=== PATIENT | female | born 1975 | race African-American/Black ===

== ENCOUNTER 2016-06-13 14:49 | Emergency (ER) | payer MEDICAID ==
[~2016-06-13] VITALS: Ht 160 cm; Wt 84.0 kg
[~2016-06-13 14:49] MED LIST: BACT800T5 PO; CIPR-9 PO; CYCL-36 PO; CYCL1TAB29 PO; FERR324T4 PO; HYDR-3533 PO; HYDR12.56 PO; IBUP800 PO; PERC5TAB12 PO; ZOFR4TAB3 SL
[2016-06-13 14:51] VITALS: BP 167/107; PULSE 107; RESP 17; TEMP 98.7; O2SAT 98
[2016-06-13] MEDS ORDERED: TRIA1TAB5 PO (16:20)
[2016-06-13] MEDS ORDERED: HYDR-3535 PO (16:20)
[2016-06-13] MEDS ORDERED: AMIT25TA9 PO (16:20)
[2016-06-13] MEDS ORDERED: LEXA10TA PO (16:20)
--- NOTE | 2016-06-13 16:35 | PD ---
HPI Chief Complaint: Abdominal Pain Time Seen by Provider: 16:20 Travel History International Travel<30 days: No Contact w/Intl Traveler<30days: No Traveled to known affect area: No History of Present Illness HPI This is a 40-year-old female who is sent by her primary care clinic for evaluation of abdominal pain. Symptoms started 1 week ago. She describes it as an aching pain in the right lower quadrant of the abdomen which is constant, worse with palpation. She endorses occasional nausea. She denies any vomiting , diarrhea or constipation, vaginal bleeding or discharge, fevers, flank pain, chest pain, shortness of breath. The patient has a history of partial hysterectomy, ovaries spared, in September 2015. Per the patient's notes from her office visit today, she had a CT the abdomen and pelvis ordered on May 27 however it was denied by her insurance. She was then transported here via EMS today. She has no other complaints at this time. PFSH Past Medical History Anemia: Yes Cancer: Yes (OVARIAN CANCER 2014 ) Cardiovascular Problems: Yes (HTN) Chemotherapy: No Diminished Hearing: No Endocrine: No Gastrointestinal Disorders: Yes (MILD CONSTIPATION WITH PAIN PILLS) Genitourinary: No Hypertension: Yes Immune Disorder: No Musculoskeletal: No Neurologic: No Psychiatric: No Reproductive: Yes (uterine fibroids) Respiratory: No Radiation Therapy: No : 1 Para: 1 Miscarriage: 0 : 0 Ectopic : No Ovarian Cysts: Yes Dilation and Curettage (D&C): No Tubal Ligation: No Past Surgical History Abdominal Surgery: Yes (hysterectomy) Section: No Gynecologic Surgery: Yes (hysterectomy) Hysterectomy: Yes Other Surgery: Yes (HYSTERECTOMY 2013) Social History Alcohol Use: No Tobacco Use: Yes (2 CIGARS PER DAY) Substance Use: No Allergies-Medications (Allergen,Severity, Reaction): Uncoded Allergies: KEROSENE (Allergy, Intermediate, Rash, 11/14/13) HIVES Reported Meds & Prescriptions Reported Meds & Active Scripts Active Naproxen 500 Mg Tab 500 Mg PO BID PRN Macrobid (Nitrofurantoin Monoh/Nitrofur Macro) 100 Mg Cap 100 Mg PO BID 7 Days Flexeril (Cyclobenzaprine HCl) 10 Mg Tab 10 Mg PO TID Reported Lortab (Hydrocodone-Acetaminophen) 10-325 Mg Tab 1 Tab PO Q6H PRN Triamterene-Hydrochlorothiazide 75-50 Mg Tab 1 Tab PO DAILY Lexapro (Escitalopram Oxalate) 10 Mg Tab 10 Mg PO DAILY Amitriptyline (Amitriptyline HCl) 25 Mg Tab 25 Mg PO HS Review of Systems Except as stated in HPI: all other systems reviewed are Neg Physical Exam Narrative GENERAL: Well-developed well-nourished female in no acute distress SKIN: Warm and dry. HEAD: Atraumatic. Normocephalic. EYES: Pupils equal and round. No scleral icterus. No injection or drainage. ENT: No nasal bleeding or discharge. Mucous membranes pink and moist. NECK: Trachea midline. No JVD. CARDIOVASCULAR: Regular rate and rhythm. No murmur appreciated. RESPIRATORY: No accessory muscle use. Clear to auscultation. Breath sounds equal bilaterally. GASTROINTESTINAL: Abdomen soft, somewhat protuberant, tenderness to palpation in the right and left lower quadrant without guarding. There is no CVA tenderness. MUSCULOSKELETAL: No obvious deformities. No edema. NEUROLOGICAL: Awake and alert. No obvious cranial nerve deficits. Motor grossly within normal limits. Normal speech. PSYCHIATRIC: Appropriate mood and affect; insight and judgment normal. Data Data Last Documented VS Vital Signs Date Time Temp Pulse Resp B/P Pulse Ox O2 Delivery O2 Flow Rate FiO2 06/13/16 14:51 98.7 107 17 167/107 98 Orders Complete Blood Count With Diff (06/13/16 16:26) Comprehensive Metabolic Panel (06/13/16 16:26) Lipase (06/13/16 16:26) Urinalysis - C+S If Indicated (06/13/16 16:26) Ct Abd/Pel W Iv Contrast(Rout) (06/13/16 16:26) Urine Culture (06/13/16 16:40) Urine Culture (06/13/16 16:40) Iohexol 350 Inj (Omnipaque 350 Inj) (06/13/16 18:19) Labs Laboratory Tests Test 06/13/16 06/13/16 16:34 16:40 White Blood Count 7.2 TH/MM3 Red Blood Count 4.57 MIL/MM3 Hemoglobin 13.6 GM/DL Hematocrit 40.4 % Mean Corpuscular Volume 88.5 FL Mean Corpuscular Hemoglobin 29.7 PG Mean Corpuscular Hemoglobin 33.6 % Concent Red Cell Distribution Width 13.5 % Platelet Count 287 TH/MM3 Mean Platelet Volume 8.1 FL Neutrophils (%) (Auto) 67.9 % Lymphocytes (%) (Auto) 24.0 % Monocytes (%) (Auto) 6.2 % Eosinophils (%) (Auto) 1.2 % Basophils (%) (Auto) 0.7 % Neutrophils # (Auto) 4.9 TH/MM3 Lymphocytes # (Auto) 1.7 TH/MM3 Monocytes # (Auto) 0.4 TH/MM3 Eosinophils # (Auto) 0.1 TH/MM3 Basophils # (Auto) 0.1 TH/MM3 CBC Comment DIFF FINAL Differential Comment Sodium Level 138 MEQ/L Potassium Level 3.5 MEQ/L Chloride Level 106 MEQ/L Carbon Dioxide Level 24.9 MEQ/L Anion Gap 7 MEQ/L Blood Urea Nitrogen 9 MG/DL Creatinine 0.72 MG/DL Estimat Glomerular Filtration 109 ML/MIN Rate Random Glucose 97 MG/DL Calcium Level 8.4 MG/DL Total Bilirubin 0.4 MG/DL Aspartate Amino Transf 25 U/L (AST/SGOT) Alanine Aminotransferase 29 U/L (ALT/SGPT) Alkaline Phosphatase 122 U/L Total Protein 7.7 GM/DL Albumin 3.5 GM/DL Lipase 95 U/L Urine Color YELLOW Urine Turbidity HAZY Urine pH 6.0 Urine Specific [place] 1.023 Urine Protein TRACE mg/dL Urine Glucose (UA) NEG mg/dL Urine Ketones NEG mg/dL Urine Occult Blood NEG Urine Nitrite POS Urine Bilirubin NEG Urine Urobilinogen LESS THAN 2.0 MG/DL Urine Leukocyte Esterase SMALL Urine WBC 12 /hpf Urine Squamous Epithelial 2 /hpf Cells Urine Bacteria FEW /hpf Urine Mucus MANY /lpf Microscopic Urinalysis Comment CULTURE INDICATED MDM Medical Decision Making Medical Screen Exam Complete: Yes Emergency Medical Condition: Yes Medical Record Reviewed: Yes Differential Diagnosis Ovarian cyst, ovarian torsion, tubo-ovarian abscess, pelvic inflammatory disease , cystitis, appendicitis, colitis, obstruction Narrative Course 40-year-old female history partial hysterectomy presents with 1 week of lower abdominal pain. She had a CT of the abdomen and pelvis ordered by her primary care office on October or however was denied by her insurance. She was seen by her primary care physician again today and transported here via EMS for further evaluation. This patient was initially seen in triage. Protocol orders were initiated. The patient will be moved to medical bed when one becomes available. Scripts Naproxen 500 Mg [id number] Mg PO BID PRN (PAIN SCALE 4 TO 10) #20 TAB Prov:Michelle Lai MD 06/13/16 Nitrofurantoin Monohydrate Macrocrystals (Macrobid)100 Mg [id number] Mg PO BID 7 Days Prov:Michelle Lai MD 06/13/16 [facility] Jun 13, 2016 16:35
[2016-06-13 16:59] LABS: AUTOMATED NEUTROPHIL # 4.9 TH/MM3 (1.8-7.7); BASOPHIL # 0.1 TH/MM3 (0-0.2); BASOPHIL % 0.7 % (0.0-2.0); EOSINOPHIL # 0.1 TH/MM3 (0-0.4); EOSINOPHIL % 1.2 % (0.0-4.0); HEMATOCRIT 40.4 % (35.0-46.0); HEMO FLAGS DIFF FINAL; LYMPHOCYTE # 1.7 TH/MM3 (1.0-4.8); MEAN CELL VOLUME 88.5 FL (80.0-100.0); MEAN CORPUSCULAR HEMOGLOBIN 29.7 PG (27.0-34.0); MEAN CORPUSCULAR HGB CONC 33.6 % (32.0-36.0); MONO % 6.2 % (0.0-8.0); NEUT % 67.9 % (16.0-70.0); PLATELET COUNT 287 TH/MM3 (150-450); RED BLOOD COUNT 4.57 MIL/MM3 (4.00-5.30); RED CELL DISTRIBUTION WIDTH 13.5 % (11.6-17.2); WHITE BLOOD COUNT 7.2 TH/MM3 (4.0-11.0)
[2016-06-13 17:25] LABS: ALKALINE PHOSPHATASE 122 U/L (45-117); ALT (GPT) 29 U/L (10-53); ANION GAP 7 MEQ/L (5-15); AST (GOT) 25 U/L (15-37); BICARBONATE 24.9 MEQ/L (21.0-32.0); BLOOD UREA NITROGEN 9 MG/DL (7-18); CHLORIDE 106 MEQ/L (98-107); GLOMERULAR FILTRATION RATE 109 ML/MIN (>89); SODIUM (NA) 138 MEQ/L (136-145); TOTAL BILIRUBIN ADULT 0.4 MG/DL (0.2-1.0)
[2016-06-13 17:26] LABS: POTASSIUM 3.5 MEQ/L (3.5-5.1)
[2016-06-13 17:26] LABS: BACTERIA, URINE FEW /hpf; BLOOD, URINE NEG (NEG); GLUCOSE,URINE NEG (NEG); KETONE, URINE NEG (NEG); MUCUS URINE MANY /lpf (OCC); SQUAMOUS EPITHELIAL CELL URINE 2 /hpf (0-5); URINE COLOR YELLOW (YELLW/STRAW)
[2016-06-13 17:28] LABS: NITRITE,URINE POS (NEG)
[2016-06-13 17:30] LABS: COMMENT (UR) CULTURE INDICATED; CULTURE IF INDICATED CULTURE INDICATED
[2016-06-13] MEDS ORDERED: IOHEXOL 350 MG/ML 10 ML VIAL (for RAD DIAG) IV ONE (18:19)
--- NOTE | 2016-06-13 18:57 | RADRPT ---
EXAM DATE/TIME: 06/13/2016 18:11 [facility] COMPARISON: No previous studies available for comparison. INDICATIONS : Nausea and abdominal pain. IV CONTRAST: 95 cc Omnipaque 350 (iohexol) IV ORAL CONTRAST: No oral contrast ingested. RADIATION DOSE: 13.91 CTDIvol (mGy) MEDICAL HISTORY : Hypertension. Uterine fibroids. Ovarian cancer. SURGICAL HISTORY : Hysterectomy. ENCOUNTER: Initial ACUITY: 1 day PAIN SCALE: 6/10 LOCATION: Bilateral lower quadrant TECHNIQUE: Volumetric scanning of the abdomen and pelvis was performed. Using automated exposure control and ad justment of the mA and/or kV according to patient size, radiation dose was kept as low as reasonably achievable to obtain optimal diagnostic quality images. FINDINGS: There is a small loculated effusion at the left lung base unchanged since March 2016. Right lung b ase is clear. No acute findings in the liver, spleen, adrenals, kidneys or pancreas. No gallstones or biliary ducta l dilatation. There is no bowel obstruction. No free air or free fluid. Within the pelvis the right ovary is enlarged to 3.9 cm which is similar to the previous 4.3cm measur ement in March 2016. Left ovary is within normal limits for size. No pelvic adenopathy. No acute b karen abnormalities. CONCLUSION: 1. Stable small loculated effusion left lung base compared with March 2016. 2. Enlargement of right ovary to approximately 4 cm, similar to prior measurement. Likely complex cys t within the right ovary. Scotty Solis MD on June 13, 2016 at 18:48 Board Certified Radiologist. This report was verified electronically.
[2016-06-13] MEDS ORDERED: MACR100C2 PO (20:06)
[2016-06-13] MEDS ORDERED: NAPR500T PO (20:06)
--- NOTE | 2016-06-13 20:06 | PD ---
Data Data Last Documented VS Vital Signs Date Time Temp Pulse Resp B/P Pulse Ox O2 Delivery O2 Flow Rate FiO2 06/13/16 14:51 98.7 107 17 167/107 98 Orders Complete Blood Count With Diff (06/13/16 16:26) Comprehensive Metabolic Panel (06/13/16 16:26) Lipase (06/13/16 16:26) Urinalysis - C+S If Indicated (06/13/16 16:26) Ct Abd/Pel W Iv Contrast(Rout) (06/13/16 16:26) Urine Culture (06/13/16 16:40) Urine Culture (06/13/16 16:40) Iohexol 350 Inj (Omnipaque 350 Inj) (06/13/16 18:19) Labs Laboratory Tests Test 06/13/16 06/13/16 16:34 16:40 White Blood Count 7.2 TH/MM3 Red Blood Count 4.57 MIL/MM3 Hemoglobin 13.6 GM/DL Hematocrit 40.4 % Mean Corpuscular Volume 88.5 FL Mean Corpuscular Hemoglobin 29.7 PG Mean Corpuscular Hemoglobin 33.6 % Concent Red Cell Distribution Width 13.5 % Platelet Count 287 TH/MM3 Mean Platelet Volume 8.1 FL Neutrophils (%) (Auto) 67.9 % Lymphocytes (%) (Auto) 24.0 % Monocytes (%) (Auto) 6.2 % Eosinophils (%) (Auto) 1.2 % Basophils (%) (Auto) 0.7 % Neutrophils # (Auto) 4.9 TH/MM3 Lymphocytes # (Auto) 1.7 TH/MM3 Monocytes # (Auto) 0.4 TH/MM3 Eosinophils # (Auto) 0.1 TH/MM3 Basophils # (Auto) 0.1 TH/MM3 CBC Comment DIFF FINAL Differential Comment Sodium Level 138 MEQ/L Potassium Level 3.5 MEQ/L Chloride Level 106 MEQ/L Carbon Dioxide Level 24.9 MEQ/L Anion Gap 7 MEQ/L Blood Urea Nitrogen 9 MG/DL Creatinine 0.72 MG/DL Estimat Glomerular Filtration 109 ML/MIN Rate Random Glucose 97 MG/DL Calcium Level 8.4 MG/DL Total Bilirubin 0.4 MG/DL Aspartate Amino Transf 25 U/L (AST/SGOT) Alanine Aminotransferase 29 U/L (ALT/SGPT) Alkaline Phosphatase 122 U/L Total Protein 7.7 GM/DL Albumin 3.5 GM/DL Lipase 95 U/L Urine Color YELLOW Urine Turbidity HAZY Urine pH 6.0 Urine Specific [place] 1.023 Urine Protein TRACE mg/dL Urine Glucose (UA) NEG mg/dL Urine Ketones NEG mg/dL Urine Occult Blood NEG Urine Nitrite POS Urine Bilirubin NEG Urine Urobilinogen LESS THAN 2.0 MG/DL Urine Leukocyte Esterase SMALL Urine WBC 12 /hpf Urine Squamous Epithelial 2 /hpf Cells Urine Bacteria FEW /hpf Urine Mucus MANY /lpf Microscopic Urinalysis Comment CULTURE INDICATED MDM Supervised Visit with MANOLO: Yes Narrative Course The history, exam, and medical decision-making in the associated midlevel provider note were completed with my assistance. I reviewed and agree with the findings presented. I attest that I had a [id number] encounter with the patient on the same day, and personally performed and documented my assessment and findings in the medical record. *My assessment and Findings: This is a 40 year old female who is in the emergency department with right sided abdominal pain. She spends the emergency department with similar complaints multiple times in the past. Today she had labs performed and a CT abdomen and pelvis which demonstrates a right sided 4 cm complex cyst. She says her pain is constant and her description of her symptoms is not consistent with ovarian torsion. She was aware of this cyst in the past and told to follow up with [facility] [employer]. I don't think the patient has an acute surgical emergency. I considered PID and tubo-ovarian abscess but she denies any vaginal discharge and says she's had the same sexual partner for 7 years. Patient will be discharged home Diagnosis Primary Impression: Ovarian cyst Qualified Code: N83.201 - Cyst of right ovary Patient Instructions: General Instructions Additional Instruction: If you develop severe or worsening abdominal pain, fever>100.4, persistent vomiting or inability to eat or drink return to the emergency department immediately. Follow up with your primary care physician in 1-2 days for a check-up. Med/Other Pt SpecificInfo: Prescription(s) given Scripts Naproxen 500 Mg [id number] Mg PO BID PRN (PAIN SCALE 4 TO 10) #20 TAB Prov:Michelle Lai MD 06/13/16 Nitrofurantoin Monohydrate Macrocrystals (Macrobid)100 Mg [id number] Mg PO BID 7 Days Prov:Michelle Lai MD 06/13/16 Disposition: 01 DISCHARGE HOME Condition: Stable Michelle Lai MD Jun 13, 2016 20:06
[2016-06-13] MEDS ORDERED: ACETAMINOPHEN/HYDROcodone 325 MG/5 MG TAB PO ONE (20:15)
== END 2016-06-13 20:22 | disposition home or self-care (01) ==
LOC: NETRI 14:49 → NEPC 20:22
DX: N83.209 Unspecified ovarian cyst, unspecified side (principal); D64.9 Anemia, unspecified; I10 Essential (primary) hypertension; B96.20 Unspecified Escherichia coli [E. coli] as the cause of diseases classified elsewhere; Z72.0 Tobacco use
CPT/HCPCS: 74177; 80053; 81001; 83690; 85025; 87077; 87086; 87186; 99284; Q9967

== ENCOUNTER 2016-09-11 16:40 | Emergency (ER) | payer MEDICAID ==
[~2016-09-11] VITALS: Ht 160 cm; Wt 79.5 kg
[~2016-09-11 16:40] MED LIST changes: +AMIT25TA9 PO; -BACT800T5 PO; -CIPR-9 PO; -CYCL-36 PO; -FERR324T4 PO; -HYDR-3533 PO; +HYDR-3535 PO; -HYDR12.56 PO; -IBUP800 PO; +LEXA10TA PO; +MACR100C2 PO; +NAPR500T PO; -PERC5TAB12 PO; +TRIA1TAB5 PO; -ZOFR4TAB3 SL
[2016-09-11 16:42] VITALS: BP 192/126; PULSE 79; RESP 20; TEMP 98.8; O2SAT 97
--- NOTE | 2016-09-11 17:32 | PD ---
Physical Exam Date Seen by Provider: September 11, 2016 Time Seen by Provider: 17:30 Narrative Pt presents on the advice of her counselor due to depression and suicidal ideations. No current plan. No previous attempts at suicide. Pt reports chest pain, midsternal with radiation to the back. Pt is mildly nauseated as well.VSS , awaiting bed placement. Data Data Last Documented VS Vital Signs Date Time Temp Pulse Resp B/P Pulse Ox O2 Delivery O2 Flow Rate FiO2 09/11/16 16:42 98.8 79 20 192/126 97 Room Air [facility] Supervised Visit with MANOLO: Brissa Subramanian September 11, 2016 17:32
[2016-09-11 18:00] VITALS: BP 164/108; PULSE 74; RESP 20; O2SAT 97
[2016-09-11 18:29] VITALS: O2SAT 98
--- NOTE | 2016-09-11 18:40 | RADRPT ---
EXAM DATE/TIME: 09/11/2016 18:24 [facility] COMPARISON: No previous studies available for comparison. INDICATIONS : Chest pain, short of breath. MEDICAL HISTORY : None. SURGICAL HISTORY : None. ENCOUNTER: Initial ACUITY: 3 days PAIN SCORE: 10/10 LOCATION: Bilateral chest FINDINGS: A single view of the chest demonstrates the lungs to be symmetrically aerated without evidence of mas s, infiltrate or effusion. The cardiomediastinal contours are unremarkable. Osseous structures are intact. CONCLUSION: No acute disease. Adán Faria MD on September 11, 2016 at 18:38 Board Certified Radiologist. This report was verified electronically.
[2016-09-11] MEDS ORDERED: KETOROLAC TROMETHAMINE 30 MG/ML (IVP) VIAL IV PUSH ONE (18:45)
--- NOTE | 2016-09-11 18:52 | PD ---
HPI Chief Complaint: Psychiatric Symptoms Time Seen by Provider: 18:48 Travel History International Travel<30 days: No Contact w/Intl Traveler<30days: No Traveled to known affect area: No History of Present Illness HPI 41-year-old female that presents to the ED for evaluation of psychiatric evaluation as well as chest pain. Per patient she has had depression and suicidal ideation and her therapist requested that she comes here to get evaluated. Per patient for the past 3 days she's been also having chest discomfort. Per patient the chest discomfort to the mid chest and radiates to the right side. Patient points to the right upper quadrant as the area of most pain. Pain is reproducible with touch but states that nothing really makes it better or worse. She denies any history of heart disease on herself or anybody else. No recent travel. No drugs or alcohol. She does take medications for depression. She has an allergy to kerosene. Denies any nausea or vomiting. No cough or runny nose. No fevers chills or sweats. Symptoms ongoing for 3 days. No injury. PFSH Past Medical History Anemia: Yes Anxiety: Yes Cancer: Yes (OVARIAN CANCER 2014 ) Cardiovascular Problems: Yes Chemotherapy: No Diminished Hearing: No Endocrine: No Gastrointestinal Disorders: Yes (MILD CONSTIPATION WITH PAIN PILLS) Genitourinary: No Hypertension: Yes Immune Disorder: No Musculoskeletal: No Neurologic: No Psychiatric: No Reproductive: Yes (uterine fibroids) Respiratory: No Immunizations Current: Yes Radiation Therapy: No Tetanus Vaccination: < 5 Years Influenza Vaccination: Yes ?: Not : 1 Para: 1 Miscarriage: 0 : 0 Ectopic : No Ovarian Cysts: Yes Dilation and Curettage (D&C): No Tubal Ligation: No Past Surgical History Surgical History: No Previous Surgery Abdominal Surgery: Yes (hysterectomy) Section: No Gynecologic Surgery: Yes (hysterectomy) Hysterectomy: Yes Other Surgery: Yes (HYSTERECTOMY 2013) Social History Alcohol Use: No Tobacco Use: Yes (2 CIGARS PER DAY) Substance Use: No Allergies-Medications (Allergen,Severity, Reaction): Uncoded Allergies: KEROSENE (Allergy, Intermediate, Rash, 11/14/13) HIVES Reported Meds & Prescriptions Reported Meds & Active Scripts Active Reported Triamterene-Hydrochlorothiazide 75-50 Mg Tab 1 Tab PO DAILY Lexapro (Escitalopram Oxalate) 10 Mg Tab 10 Mg PO DAILY Amitriptyline (Amitriptyline HCl) 25 Mg Tab 25 Mg PO HS Review of Systems Except as stated in HPI: all other systems reviewed are Neg Physical Exam Narrative GENERAL: SKIN: Warm and dry. HEAD: Atraumatic. Normocephalic. EYES: Pupils equal and round. No scleral icterus. No injection or drainage. ENT: No nasal bleeding or discharge. Mucous membranes pink and moist. Tongue is midline. No uvula deviation. NECK: Trachea midline. No JVD. CARDIOVASCULAR: Regular rate and rhythm. No murmurs, S3, S4. Some of the chest pain is reproducible with touch in the mid chest. RESPIRATORY: No accessory muscle use. Clear to auscultation. Breath sounds equal bilaterally. GASTROINTESTINAL: Abdomen soft, non-tender, nondistended. Hepatic and splenic margins not palpable. MUSCULOSKELETAL: Extremities without clubbing, cyanosis, or edema. No obvious deformities. Full range of motion of the upper and lower extremities bilaterally. 2+ pulses bilaterally. NEUROLOGICAL: Awake and alert. No obvious cranial nerve deficits. Motor grossly within normal limits. Five out of 5 muscle strength in the arms and legs. Normal speech. PSYCHIATRIC: Appropriate mood and affect; insight and judgment normal. Data Data Last Documented VS Vital Signs Date Time Temp Pulse Resp B/P Pulse Ox O2 Delivery O2 Flow Rate FiO2 09/11/16 19:05 70 17 155/96 98 Room Air 09/11/16 16:42 98.8 Orders Electrocardiogram (09/11/16 17:35) Electrocardiogram (09/11/16 18:03) Complete Blood Count With Diff (09/11/16 18:03) Comprehensive Metabolic Panel (09/11/16 18:03) Ckmb (Isoenzyme) Profile (09/11/16 18:03) Troponin I (09/11/16 18:03) Lipase (09/11/16 18:03) Urinalysis - C+S If Indicated (09/11/16 18:03) Magnesium (Mg) (09/11/16 18:03) Chest, Single Ap (09/11/16 18:03) Iv Access Insert/Monitor (09/11/16 18:03) Ecg Monitoring (09/11/16 18:03) Oximetry (09/11/16 18:03) Ed Urine Pregnancytest Poc (09/11/16 18:03) Drug Screen, Random Urine (09/11/16 18:03) Alcohol (Ethanol) (09/11/16 18:03) Us Abdomen Gallbladder (09/11/16 ) Ketorolac Inj (Toradol Inj) (09/11/16 18:45) Ondansetron Inj (Zofran Inj) (09/11/16 19:15) Labs Laboratory Tests Test 09/11/16 18:43 White Blood Count 7.1 TH/MM3 Red Blood Count 4.78 MIL/MM3 Hemoglobin 13.8 GM/DL Hematocrit 42.1 % Mean Corpuscular Volume 88.1 FL Mean Corpuscular Hemoglobin 28.9 PG Mean Corpuscular Hemoglobin 32.9 % Concent Red Cell Distribution Width 13.3 % Platelet Count 289 TH/MM3 Mean Platelet Volume 8.1 FL Neutrophils (%) (Auto) 64.7 % Lymphocytes (%) (Auto) 26.8 % Monocytes (%) (Auto) 6.5 % Eosinophils (%) (Auto) 1.4 % Basophils (%) (Auto) 0.6 % Neutrophils # (Auto) 4.6 TH/MM3 Lymphocytes # (Auto) 1.9 TH/MM3 Monocytes # (Auto) 0.5 TH/MM3 Eosinophils # (Auto) 0.1 TH/MM3 Basophils # (Auto) 0.0 TH/MM3 CBC Comment DIFF FINAL Differential Comment Urine Color LIGHT-YELLOW Urine Turbidity CLEAR Urine pH 6.5 Urine Specific [place] 1.005 Urine Protein NEG mg/dL Urine Glucose (UA) NEG mg/dL Urine Ketones NEG mg/dL Urine Occult Blood NEG Urine Nitrite NEG Urine Bilirubin NEG Urine Urobilinogen LESS THAN 2.0 MG/DL Urine Leukocyte Esterase NEG Urine WBC 4 /hpf Urine Squamous Epithelial 1 /hpf Cells Urine Bacteria RARE /hpf Microscopic Urinalysis Comment CULT NOT INDICATED Sodium Level 138 MEQ/L Potassium Level 3.5 MEQ/L Chloride Level 105 MEQ/L Carbon Dioxide Level 24.8 MEQ/L Anion Gap 8 MEQ/L Blood Urea Nitrogen 13 MG/DL Creatinine 0.74 MG/DL Estimat Glomerular Filtration 105 ML/MIN Rate Random Glucose 100 MG/DL Calcium Level 8.8 MG/DL Magnesium Level 2.1 MG/DL Total Bilirubin 0.4 MG/DL Aspartate Amino Transf 17 U/L (AST/SGOT) Alanine Aminotransferase 24 U/L (ALT/SGPT) Alkaline Phosphatase 132 U/L Total Creatine Kinase 74 U/L Troponin I LESS THAN 0.02 NG/ML Total Protein 7.9 GM/DL Albumin 3.8 GM/DL Lipase 341 U/L Ethyl Alcohol Level 3 MG/DL MDM Medical Decision Making Medical Screen Exam Complete: Yes Emergency Medical Condition: Yes Medical Record Reviewed: Yes Interpretation(s) CBC & BMP Diagram 09/11/16 18:43 Last Impressions Chest X-Ray 09/11/16 1803 Signed Impressions: Service Date/Time: September 18:24 - CONCLUSION: No acute disease. Adán Faria MD Gall Bladder Ultrasound 09/11/16 0000 Signed Impressions: Service Date/Time: , September 11, 2016 18:41 - CONCLUSION: Normal examination. Adán Faria MD LFTs WNL Lipase WNL Troponin and CKMB negative EKG shows sinus rhythm with no sign of acute ischemia or arrhythmia. Differential Diagnosis Chest pain versus a typical chest pain versus pneumonia versus gallbladder disease versus depression versus suicidal ideation versus mood disorder Narrative Course 41-year-old female that presents to the ED for evaluation of chest pain and depression. Patient was properly examined and was found to have signs and symptoms of unclear etiology at this time. Most of her symptoms appears to be psychiatric but she does complain of some chest discomfort for the past 3 days. I recommend labs and imaging. She is in agreement with this. Labs and imaging showed no sign of acute disease. Labs and imaging were essentially unremarkable. This time patient was given Toradol and antiemetics with good relief. I do not believe this is cardiac in nature as is reproducible with touch. This appears to be likely pleurisy vs costochondritis. Patient will be medically clear. Okay to be seen by psych. Mental health screening was discussed with the patient. Diagnosis Primary Impression: Depression Qualified Code: F33.1 - Moderate episode of recurrent major depressive disorder Additional Impression: Atypical chest pain Sherwin Hanley September 11, 2016 18:52
[2016-09-11 18:58] LABS: AUTOMATED NEUTROPHIL # 4.6 TH/MM3 (1.8-7.7); BASOPHIL % 0.6 % (0.0-2.0); EOSINOPHIL # 0.1 TH/MM3 (0-0.4); EOSINOPHIL % 1.4 % (0.0-4.0); HEMATOCRIT 42.1 % (35.0-46.0); HEMO FLAGS DIFF FINAL; LYMPH % 26.8 % (9.0-44.0); LYMPHOCYTE # 1.9 TH/MM3 (1.0-4.8); MEAN CELL VOLUME 88.1 FL (80.0-100.0); MEAN CORPUSCULAR HEMOGLOBIN 28.9 PG (27.0-34.0); MEAN CORPUSCULAR HGB CONC 32.9 % (32.0-36.0); MONO % 6.5 % (0.0-8.0); NEUT % 64.7 % (16.0-70.0); PLATELET COUNT 289 TH/MM3 (150-450); RED BLOOD COUNT 4.78 MIL/MM3 (4.00-5.30); RED CELL DISTRIBUTION WIDTH 13.3 % (11.6-17.2); WHITE BLOOD COUNT 7.1 TH/MM3 (4.0-11.0)
[2016-09-11 19:05] VITALS: BP 155/96; PULSE 70; RESP 17; O2SAT 98
[2016-09-11 19:05] LABS: BACTERIA, URINE RARE /hpf; BLOOD, URINE NEG (NEG); COMMENT (UR) CULT NOT INDICATED; CULTURE IF INDICATED CULT NOT INDICATED; GLUCOSE,URINE NEG (NEG); KETONE, URINE NEG (NEG); NITRITE,URINE NEG (NEG); PH, URINE 6.5 (5.0-8.5); SQUAMOUS EPITHELIAL CELL URINE 1 /hpf (0-5); URINE COLOR LIGHT-YELLOW (YELLW/STRAW)
[2016-09-11] MEDS ORDERED: ONDANSETRON HCL 4 MG/2 ML VIAL IV PUSH ONE (19:15)
[2016-09-11 19:17] LABS: ANION GAP 8 MEQ/L (5-15); BICARBONATE 24.8 MEQ/L (21.0-32.0); BLOOD UREA NITROGEN 13 MG/DL (7-18); CHLORIDE 105 MEQ/L (98-107); GLOMERULAR FILTRATION RATE 105 ML/MIN (>89); MAGNESIUM 2.1 MG/DL (1.5-2.5); POTASSIUM 3.5 MEQ/L (3.5-5.1); SODIUM (NA) 138 MEQ/L (136-145)
[2016-09-11 19:20] LABS: ALKALINE PHOSPHATASE 132 U/L (45-117); ALT (GPT) 24 U/L (10-53); AST (GOT) 17 U/L (15-37); TOTAL BILIRUBIN ADULT 0.4 MG/DL (0.2-1.0)
--- NOTE | 2016-09-11 19:23 | RADRPT ---
EXAM DATE/TIME: 09/11/2016 18:41 [facility] COMPARISON: No previous studies available for comparison. INDICATIONS : Right upper quadrant pain. MEDICAL HISTORY : Carcinoma, ovarian. HTN. Uterine fibroids. Ovarian cysts. Anemia. Anxiety. SURGICAL HISTORY : Hysterectomy. ENCOUNTER: Initial ACUITY: 3 days PAIN SCORE: 10/10 LOCATION: Right upper quadrant MEASUREMENTS: LIVER: 13.8 cm length COMMON DUCT: 5 mm RIGHT KIDNEY: 11.6 x 5.2 x 4.5 cm FINDINGS: LIVER: Normal echotexture without focal lesion or ductal dilatation. COMMON DUCT: No intraluminal mass or stone visualized. GALLBLADDER: Contains no stones, demonstrates no wall thickening or pericholecystic fluid. PANCREAS: The visualized portions are within normal limits. RIGHT KIDNEY: No evidence of hydronephrosis, stone, or mass. CONCLUSION: Normal examination. Adán Faria MD on September 11, 2016 at 19:20 Board Certified Radiologist. This report was verified electronically.
[2016-09-11 19:37] LABS: CREATINE KINASE 74 U/L (26-192)
[2016-09-11] MEDS ORDERED: MORPHINE SULFATE 4 MG/ML INJ IV PUSH ONE (20:00)
[2016-09-11 20:07] VITALS: BP 186/110; PULSE 84; RESP 17; O2SAT 99
[2016-09-11 20:15] LABS: AMPHETAMINE, URINE NEG (NEG); BARBITURATES, URINE NEG (NEG); COCAINE, URINE POS (NEG)
--- NOTE | 2016-09-11 21:21 | EKG ---
Date Performed: 09/11/2016 Time Performed: 17:40:25 PTAGE: 41 years EKG: Sinus rhythm NORMAL ECG NO SIGNIFICANT CHANGE FROM PRIOR ELECTROCARDIOGRAM. PREVIOUS TRACING : 12/29/2014 15.53 DOCTOR: Emanuel Ramon Interpretating Date/Time 09/11/2016 21:20:54
[2016-09-12] MEDS ORDERED: ACETAMINOPHEN 325 MG TAB PO ONE (01:15)
[2016-09-12 01:30] VITALS: BP 174/102; PULSE 76; RESP 18; O2SAT 97
[2016-09-12 04:36] VITALS: BP 167/97; PULSE 72; RESP 18; O2SAT 96
[2016-09-12 07:10] VITALS: BP 140/81; PULSE 76; RESP 16; RESP 17; TEMP 97.8; O2SAT 97; O2SAT 98
--- NOTE | 2016-09-12 08:18 | EKG ---
Date Performed: 09/11/2016 Time Performed: 21:59:59 PTAGE: 41 years EKG: Sinus rhythm NORMAL ECG NO SIGNIFICANT CHANGE FROM PRIOR ELECTROCARDIOGRAM. PREVIOUS TRACING : 09/11/2016 17.40 DOCTOR: Emanuel Ramon Interpretating Date/Time 09/12/2016 08:17:34
[2016-09-12 11:12] VITALS: BP 127/79; PULSE 81; RESP 16; TEMP 97.8; O2SAT 99
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
[2016-09-12 12:16] VITALS: BP 120/77; TEMP 97.8
== END 2016-09-12 12:17 | disposition home or self-care (01) ==
LOC: NEPE 16:40 → NEPD 09-12 12:17
DX: F33.1 Major depressive disorder, recurrent, moderate (principal); F19.94 Other psychoactive substance use, unspecified with psychoactive substance-induced mood disorder; R07.89 Other chest pain; D64.9 Anemia, unspecified; I10 Essential (primary) hypertension; F14.90 Cocaine use, unspecified, uncomplicated; Z72.0 Tobacco use; Z72.89 Other problems related to lifestyle
CPT/HCPCS: 71010; 76705; 80053; 80307; 81001; 82550; 83690; 83735; 84484; 84703; 85025; 93005; 96374; 96375; 99285; J1885; J2270; J2405

== ENCOUNTER 2017-05-16 21:25 | Emergency (ER) | payer SELFPAY ==
[~2017-05-16] VITALS: Ht 160 cm; Wt 82.0 kg
[~2017-05-16 21:25] MED LIST changes: -CYCL1TAB29 PO; -HYDR-3535 PO; -MACR100C2 PO; -NAPR500T PO
[2017-05-16 21:26] VITALS: BP 190/107; PULSE 76; RESP 18; TEMP 98.5; O2SAT 97
--- NOTE | 2017-05-16 22:34 | RADRPT ---
EXAM DATE/TIME: 05/16/2017 22:07 [place] COMPARISON: No previous studies available for comparison. INDICATIONS : Right wrist pain and swelling after fall today. MEDICAL HISTORY : Carcinoma, ovarian. HTN. Uterine fibroids. Ovarian cysts. Anemia. Anxiety. SURGICAL HISTORY : Hysterectomy. ENCOUNTER: Initial ACUITY: 1 day PAIN SCORE: 10/10 LOCATION: Right wrist. FINDINGS: Three view examination of the right wrist demonstrates no soft tissue swelling, dislocation, or fract ure. The carpal bones are in normal alignment. The joint spaces are maintained. Bony mineralizatio n is normal. CONCLUSION: Intact right wrist. Adán Dickson MD on May 16, 2017 at 22:31 Board Certified Radiologist. This report was verified electronically.
[2017-05-16] MEDS ORDERED: IBUP1TAB7 PO (22:54)
--- NOTE | 2017-05-16 22:54 | PD ---
HPI Chief Complaint: Injury Time Seen by Provider: 22:45 Travel History International Travel<30 days: No Contact w/Intl Traveler<30days: No Traveled to known affect area: No History of Present Illness HPI 41-year-old female presents to emergency department for evaluation of right wrist and thumb pain [place] skating [place]. Patient states she fell backwards landing on an outstretched hand. Her thumb bent sideways and backwards. She reports significant pain at the base of her thumb and distal lateral wrist. It Is constant, exacerbated with movement. Denies any alterations in sensation. She did not strike her head or lose consciousness. She denies any other focal deficits or weakness. She has no other symptoms to report. [facility] Past Medical History Anemia: Yes Anxiety: Yes Cancer: Yes (OVARIAN CANCER 2014 ) Cardiovascular Problems: Yes Chemotherapy: No Diminished Hearing: No Endocrine: No Gastrointestinal Disorders: Yes (MILD CONSTIPATION WITH PAIN PILLS) Genitourinary: No Hypertension: Yes Immune Disorder: No Musculoskeletal: No Neurologic: No Psychiatric: No Reproductive: Yes (uterine fibroids) Respiratory: No Immunizations Current: Yes Radiation Therapy: No ?: Not : 1 Para: 1 Miscarriage: 0 : 0 Ectopic : No Ovarian Cysts: Yes Dilation and Curettage (D&C): No Tubal Ligation: No Past Surgical History Abdominal Surgery: Yes (hysterectomy) Section: No Gynecologic Surgery: Yes (hysterectomy) Hysterectomy: Yes (PARTIAL) Other Surgery: Yes (HYSTERECTOMY 2013) Social History Alcohol Use: No Tobacco Use: Yes (2 CIGARS PER DAY) Substance Use: No Allergies-Medications (Allergen,Severity, Reaction): Uncoded Allergies: KEROSENE (Allergy, Intermediate, Rash, 11/14/13) HIVES Reported Meds & Prescriptions Reported Meds & Active Scripts Active Ibuprofen 800 Mg Tab 800 Mg PO Q8H PRN Reported Triamterene-Hydrochlorothiazide 75-50 Mg Tab 1 Tab PO DAILY Lexapro (Escitalopram Oxalate) 10 Mg Tab 10 Mg PO DAILY Amitriptyline (Amitriptyline HCl) 25 Mg Tab 25 Mg PO HS Review of Systems Except as stated in HPI: all other systems reviewed are Neg Physical Exam Narrative GENERAL: Well-nourished female patient, in no acute distress. SKIN: Focused skin assessment warm/dry. HEAD: Atraumatic. Normocephalic. EYES: Pupils equal and round. No scleral icterus. No injection or drainage. ENT: No nasal bleeding or discharge. Mucous membranes pink and moist. NECK: Trachea midline. No JVD. CARDIOVASCULAR: Regular rate and rhythm. No murmur appreciated. RESPIRATORY: No accessory muscle use. Clear to auscultation. Breath sounds equal bilaterally. EXTREMITY: There is mild swelling and significant tenderness of the right lateral forearm and wrist. Snuff box tenderness on the right There is no obvious deformity. The skin is intact. Flexion and extension of the fingers is normal exacerbates pain. The fingers are warm and well perfused. Sensation to light touch is intact in the hand. NEUROLOGICAL: Awake and alert. No obvious cranial nerve deficits. Motor grossly within normal limits. Normal speech. PSYCHIATRIC: Appropriate mood and affect; insight and judgment normal. Data Data Last Documented VS Vital Signs Date Time Temp Pulse Resp B/P (MAP) Pulse Ox O2 Delivery O2 Flow Rate FiO2 05/16/17 21:26 98.5 76 18 190/107 (134) 97 Room Air Orders Orders Wrist, Complete (Lyt4hkg) (05/16/17 ) Ibuprofen (Motrin) (05/16/17 23:00) Splint Or Brace Apply/Monitor (05/16/17 22:50) Ed Discharge Order (05/16/17 22:54) Fiberglass Thumb Spica Adult (05/16/17 ) MDM Medical Decision Making Medical Screen Exam Complete: Yes Emergency Medical Condition: Yes Medical Record Reviewed: Yes Differential Diagnosis Sprain versus fracture versus dislocation versus contusion Narrative Course 41-year-old female presents to the emergency department for evaluation of right lateral wrist and thumb pain. X-ray imaging confirms no acute bony abnormality however patient does have significant snuffbox tenderness. She is placed in a thumb spica splint encouraged follow-up with hand specialist. She agrees to return immediately with any acute worsening of symptoms. Diagnosis Primary Impression: Right wrist injury Qualified Codes: S69.91XA - Unspecified injury of right wrist, hand and finger (s), initial encounter Additional Impression: Sprain of right thumb Qualified Codes: S63.641A - Sprain of metacarpophalangeal joint of right thumb , initial encounter Referrals: Hand Surgeon Primary Care Physician Patient Instructions: General Instructions, [facility] (ED) Additional Instructions: Ice and elevate to reduce pain and swelling Do not remove your splint Do not get it wet Follow up with hand specialist within the next week Return to ED with acute worsening of symptoms Med/Other Pt SpecificInfo: Prescription(s) given Scripts Ibuprofen (Ibuprofen) 800 Mg Tab 800 MG PO Q8H Y for Pain/Inflammation, #30 TAB 0 Refills Prov: Padmaja Cohen 05/16/17 Disposition: 01 DISCHARGE HOME Condition: Stable Padmaja Cohen May 16, 2017 22:54
[2017-05-16] MEDS ORDERED: IBUPROFEN 800 MG TAB PO ONE (23:00)
== END 2017-05-17 00:41 | disposition home or self-care (01) ==
LOC: NEPD 21:25
DX: S69.91XA Unspecified injury of right wrist, hand and finger(s), initial encounter (principal); S63.641A Sprain of metacarpophalangeal joint of right thumb, initial encounter; D64.9 Anemia, unspecified; I10 Essential (primary) hypertension; F17.290 Nicotine dependence, other tobacco product, uncomplicated; W18.30XA Fall on same level, unspecified, initial encounter; Y93.21 Activity, ice skating; Y92.330 Ice skating rink (indoor) (outdoor) as the place of occurrence of the external cause; Z79.899 Other long term (current) drug therapy
CPT/HCPCS: 73110; 99283; L3808